=== PATIENT | female | born 1960 | race Caucasian/White ===

== ENCOUNTER 2019-04-15 02:17 | Observation (INO) ==
[2019-04-15] MEDS ORDERED: 0.9 % Sodium Chloride 1,000 ML IVC ONE ×3 (02:33→15:25)
[2019-04-15 03:33] LABS: Basophils # 0.1 K/mcL (0.0-0.2); Basophils % 0.6 %; Eosinophils # 0.1 K/mcL (0.0-0.6); Eosinophils % 1.3 %; Hematocrit 34.8 % (35.3-44.9); Hemoglobin 10.8 g/dL (11.5-15.4); Immature Granulocytes % 0.2 % (0-4); Lymphocytes # 3.9 K/mcL (0.6-4.6); Lymphocytes % 43.7 %; Mean Corpuscular Hemoglobin 25.6 pg (28.0-33.3); Mean Corpuscular Volume 82.5 fL (83.0-100.0); Monocytes # 0.4 K/mcL (0.0-1.3); Monocytes % 4.8 %; Neutrophils # 4.4 K/mcL (1.6-8.9); Platelet Count 335 K/mcL (140-400); Red Blood Count 4.22 M/mcL (3.82-4.97); Red Cell Distribution Width 20.9 % (11.5-14.5); Segmented Neutrophils % 49.4 %
[2019-04-15 03:36] LABS: INR 1.1
[2019-04-15 03:39] LABS: Activated Partial Thrombo Time 40.4 Seconds (26.0-36.0)
[2019-04-15 03:46] LABS: Troponin I < 0.03 ng/mL (< 0.04)
[2019-04-15 04:17] LABS: Alanine Aminotransferase 10 Units/L (7-52); Albumin 3.9 g/dL (3.5-5.7); Albumin/Globulin Ratio 1.4 (1.1-2.2); Alkaline Phosphatase 92 Units/L (34-104); Aspartate Amino Transferase 14 Units/L (13-39); BUN/Creatinine Ratio 8 (6-26); Bilirubin,Direct 0.1 mg/dL (0.0-0.2); Bilirubin,Indirect 0.1 mg/dL (0.0-1.0); Bilirubin,Total 0.2 mg/dL (0.3-1.0); Blood Urea Nitrogen 7 mg/dL (6-20); Calcium 9.6 mg/dL (8.6-10.3); Carbon Dioxide 26 mEq/L (23-29); Chloride 103 mEq/L (98-107); Ethanol 62 mg/dL (Less than 10); Globulin 2.8 g/dL (2.4-3.5); Glucose 80 mg/dL (70-105); Osmolality,Calculated 289 (280-300); Potassium 3.8 mEq/L (3.5-5.1); Sodium 141 mEq/L (136-145); Total Protein 6.7 g/dL (6.4-8.9); eGFR For African Americans > 60 (> 60); eGFR For Non-African Americans > 60 (> 60)
[2019-04-15 05:13] LABS: Bilirubin,Urine Negative (Negative); Blood,Urine Negative (Negative); Clarity,Urine Slightly Cloudy (Clear); Glucose,Urine (UA) Normal (Normal); Ketones,Urine Negative (Negative); Leukocyte Esterase,Urine Negative (Negative); Nitrite,Urine Negative (Negative); PH,Urine 5.5 pH Units (5.0-8.0); Protein,Urine Negative (Neg-Trace); Urobilinogen,Urine Normal (Normal)
[2019-04-15 05:16] LABS: Color,Urine Light Yellow (Yellow)
[2019-04-15 06:54] LABS: Amphetamine Screen,Urine Negative ng/mL (Cutoff=1000); Barbiturate Screen,Urine Positive ng/mL (Cutoff=200); Benzodiazepines Screen,Urine Negative ng/mL (Cutoff=200); Cannabinoid Screen,Urine Negative ng/mL (Cutoff = 50); Cocaine Screen,Urine Negative ng/mL (Cutoff= 300); Opiate Screen,Urine Negative ng/mL (Cutoff=300); Phencyclidine Screen,Urine Negative ng/mL (Cutoff=25)
[2019-04-15 07:06] LABS: Squamous Epithelial Cell,Urine Few per lpf (None-Few)
[2019-04-15 07:07] LABS: RBC,Urine 0-3 per hpf (0-3); WBC,Urine 0-3 per hpf (0-3)
[2019-04-15 07:09] LABS: Bacteria,Urine Moderate per hpf (None-Few)
[2019-04-15] MEDS ORDERED: Acetaminophen 325 MG TABLET PO PRN (08:18)
[2019-04-15] MEDS ORDERED: Mag Hydrox/Al Hydrox/Simeth 30 ML UDC PO PRN (08:18)
[2019-04-15] MEDS ORDERED: Naloxone 0.4 MG/ML INJ IVP PRN (08:18)
[2019-04-15] MEDS ORDERED: Ondansetron 4 MG/2 ML VIAL IVP PRN (08:18)
[2019-04-15] MEDS ORDERED: MOM Conc 10 ML UD.LIQ PO PRN (08:18)
[2019-04-15] MEDS ORDERED: Thiamine (B-1) 100 MG, Folic Acid 1 MG in 0.9 % Sodium Chloride 100 ML IVPB ONE (10:00)
[2019-04-15] MEDS: Nicotine 21 MG PATCH.TD24 TD SCH (10:12)
[2019-04-15] MEDS: Thiamine (B-1) 100 MG TABLET PO SCH (10:16)
[2019-04-15] MEDS: Folic Acid 1 MG TABLET PO SCH (10:16)
[2019-04-15] MEDS: Vitamin B Complex/Vit C/Vit E 1 EACH TABLET PO SCH (10:16)
[2019-04-15 10:52] LABS: ABG Base Excess -1 mEq/L (-2 to 3); ABG HCO3 27 mEq/L (21-27); ABG Oxygen Saturation 88 % (95-98); ABG PCO2 55 mmHg (35-45); ABG PO2 61 mmHg (85-104); ABG TCO2 28 mEq/L (20-26)
[2019-04-15] MEDS ORDERED: Acetaminophen/Butalbital/CaffeineTABLET PO PRN (11:53)
[2019-04-15] MEDS ORDERED: Nitroglycerin 0.4 MG TAB.SUBL SL SCH (12:00)
[2019-04-15] MEDS ORDERED: Nitroglycerin 0.4 MG TAB.SUBL SL PRN (12:50)
[2019-04-15] MEDS: clonazePAM 0.5 MG TABLET PO SCH ×2 (15:24→19:56)
[2019-04-15] MEDS: Sucralfate 1 GM TABLET PO SCH (17:02)
[2019-04-15] MEDS ORDERED: Gabapentin 100 MG CAPSULE PO SCH (21:00)
[2019-04-15 21:32] LABS: Adenovirus Not Detected (Not Detect); Bordetella Pertussis Not Detected (Not Detect); Chlamydophila pneumoniae Not Detected (Not Detect); Coronavirus 229E Not Detected (Not Detect); Coronavirus HKU1 Not Detected (Not Detect); Coronavirus NL63 Not Detected (Not Detect); Coronavirus OC43 Not Detected (Not Detect); Human Metapneumovirus Not Detected (Not Detect); Human Rhinovirus/Enterovirus Not Detected (Not Detect); Influenza A Subtype 2009 H1 Not Detected (Not Detect); Influenza B Not Detected (Not Detect); Mycoplasma pneumoniae Not Detected (Not Detect); Parainfluenza Virus 1 Not Detected (Not Detect); Parainfluenza Virus 2 Not Detected (Not Detect); Parainfluenza Virus 3 Not Detected (Not Detect); Parainfluenza Virus 4 Not Detected (Not Detect); Respiratory Syncytial Virus Not Detected (Not Detect)
[2019-04-16 07:03] VITALS: BP 125/68
[2019-04-16] MEDS: Thiamine (B-1) 100 MG TABLET PO SCH (08:59)
[2019-04-16] MEDS: clonazePAM 0.5 MG TABLET PO SCH (09:00)
[2019-04-16] MEDS: Nicotine 21 MG PATCH.TD24 TD SCH (09:00)
[2019-04-16] MEDS: Folic Acid 1 MG TABLET PO SCH (09:00)
[2019-04-16] MEDS ORDERED: Furosemide 20 MG TABLET PO SCH (09:00)
[2019-04-16] MEDS ORDERED: rOPINIRole 0.25 MG TABLET PO SCH (09:00)
[2019-04-16] MEDS ORDERED: Loratadine 10 MG TABLET PO SCH (09:00)
[2019-04-16] MEDS: Vitamin B Complex/Vit C/Vit E 1 EACH TABLET PO SCH (09:00)
[2019-04-16] MEDS ORDERED: *HR* SitaGLIPtin 25 MG TABLET PO SCH (09:00)
[2019-04-16] MEDS ORDERED: PARoxetine 20 MG TABLET PO SCH (09:00)
[2019-04-16] MEDS: Sucralfate 1 GM TABLET PO SCH (09:00)
[2019-04-16] MEDS ORDERED: Budesonide/Formoterol 80/4.5 1 PUFF INH IH SCH (10:00)
== END 2019-04-16 10:25 | disposition home or self-care (01) ==
LOC: INPPIK 02:17 → EMEROOPIK 02:17 → SUATTDRO 08:46 → INPPIK 09:22
PROVIDERS: ADMIT Internal Medicine; ATTEND Family Medicine